=== PATIENT | male | born 1960 | race Caucasian/White ===

== ENCOUNTER → 2020-05-15 11:26 | Outpatient (CLI) | payer OTHER, SELFPAY ==
--- NOTE | 2020-05-15 | DI.RAD.S_ITS ---
PROCEDURE: XR HIP W PEL IF DONE RT 2V INDICATIONS: Pain in unspecified hip TECHNIQUE: AP pelvis with lateral view(s) of the right hip(s). COMPARISON: None. FINDINGS: Bones: No fractures or dislocations. Pelvic ring appears intact. No suspicious bony lesions. Soft tissues: The visualized bowel gas pattern is normal. No suspicious soft tissue calcifications. IMPRESSION: There is a rounded calcification overlying the midline of the low pelvis potentially a bladder calculus. This measures 1 cm in diameter, and is seen superimposed on the left symphysis pubis superiorly. No trauma to the pelvis is found, mild symmetric hip joint osteoarthritis is present involving each hip. Dictated by: Saurabh Gambino M.D. on 05/15/2020 at 17:08 Approved by: Saurabh Gambino M.D. on 05/15/2020 at 17:09
== END ==
PROVIDERS: PCP Family Medicine
DX: M25.551 Pain in right hip (principal)
CPT/HCPCS: 73502